=== PATIENT | male | born 1965 | race Caucasian/White ===

== ENCOUNTER 2016-04-22 15:56 | Emergency (ER) | payer OTHER ==
[2016-04-22 16:18] VITALS: BP 178/102
--- NOTE | 2016-04-22 16:39 | UC ---
General HPI - HPI Summary HPI Summary: 50 year old male presents complaining of bilateral maxillary sinus pressure and congestion and rhinitis x 10-11 days. Patient reports green mucus production and feeling fatigued. Denies fever, GI symptoms, post-nasal drip, ear discomfort , or sore throat. 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 - History of Current Complaint Chief Complaint: UCGeneralIllness Stated Complaint: SINUS ISSUE Time Seen by Provider: 04/22/16 16:22 Hx Obtained From: Patient Onset/Duration: Gradual Onset Associated Signs & Symptoms: Negative: Abdominal Pain, Cough, Chest Pain, Dizziness, Diarrhea, SOB, Vomiting, Wheezing - Allergy/Home Medications Allergies/Adverse Reactions: Allergies Allergy/AdvReac Type Severity Reaction Status Date / Time No Known Allergies Allergy Verified 04/22/16 16:14 PMH/Surg Hx/FS Hx/Imm Hx Previously Healthy: Yes Endocrine History Of: Denies: Diabetes, Thyroid Disease Cardiovascular History Of: Reports: Hypertension - Patient states he has boarderline HTN, following up with PCP, discussed BP Denies: Cardiac Disorders Respiratory History Of: Denies: COPD, Asthma GI/ History Of: Reports: Gastroesophageal Reflux Denies: Ulcer Neurological History Of: Denies: TIA, CVA, Seizures, Migraine Psychological History Of: Denies: Anxiety, Depression - Surgical History Surgical History: Yes Surgery Procedure, Year, and Place: hernia repair, appy - Family History Known Family History: Positive: Cardiac Disease, Hypertension - Social History 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 Lives: With Family Alcohol Use: None Substance Use Type: None Smoking Status (MU): Never Smoked Tobacco Have You Smoked in the Last Year: No - Immunization History Most Recent Influenza Vaccination: Never Review of Systems Constitutional: Fatigue Skin: Negative Eyes: Negative ENT: Other - Sinus congestion Respiratory: Negative Cardiovascular: Negative Gastrointestinal: Negative Genitourinary: Negative Motor: Negative Neurovascular: Negative Musculoskeletal: Negative Neurological: Negative Psychological: Negative All Other Systems Reviewed And Are Negative: Yes Physical Exam Triage Information Reviewed: Yes Appearance: Ill-Appearing Vital Signs: Initial Vital Signs Temp 97.5 F 04/22/16 16:15 Pulse 99 04/22/16 16:15 Resp 18 04/22/16 16:15 BP 178/102 04/22/16 16:15 Pulse Ox 96 04/22/16 16:15 Vital Signs Reviewed: Yes Eyes: Positive: Other: - Bilateral maxillary shiners ENT: Positive: Hearing grossly normal, Pharynx normal, Nasal congestion, TMs normal, Other: - Bilateral maxillary sinus pressure Dental Exam: Normal Neck: Positive: Supple, Nontender, No Lymphadenopathy Respiratory: Positive: Chest non-tender, Lungs clear, Normal breath sounds, No respiratory distress, No accessory muscle use Cardiovascular: Positive: RRR, No Murmur, Pulses Normal Abdomen Description: Positive: Nontender, No Organomegaly, Soft Musculoskeletal Exam: Normal Musculoskeletal: Positive: Strength Intact, ROM Intact, No Edema Neurological Exam: Normal Neurological: Positive: Alert, Muscle Tone Normal, Fatigued Psychological Exam: Normal Skin Exam: Normal Course/Dx - Differential Dx - Multi-Symptom Provider Diagnoses: Bacterial maxillary rhinosinusitis Discharge - Discharge Plan Condition: Stable Disposition: HOME Prescriptions: Amoxicillin/Clavulanate TAB* [Augmentin TAB 875*] 875 mg PO BID #14 tab Patient Education Materials: Sinusitis (ED) Referrals: No Primary Care Phys,NOPCP [Primary Care Provider] - If Needed [facility] [Outside] Additional Instructions: As discussed, if symptoms persist after treatment, seek medical evaluation. See PCP regarding BP as discussed.
== END 2016-04-22 16:52 | disposition home or self-care (01) ==
LOC: UCEAST 15:56
DX: J32.0 Chronic maxillary sinusitis (principal)
CPT/HCPCS: 99212; G0463